=== PATIENT | male | born 1985 | race Caucasian/White ===

== ENCOUNTER 2017-09-15 03:18 | Inpatient (IN) | payer OTHER ==
[2017-09-15] VITALS (11 sets, daily range): BP systolic 108–129; BP diastolic 55–82; PULSE 72–97; RESP 16–17; TEMP 98.2–98.3; O2SAT 94–99
[2017-09-15] MEDS ORDERED: HALOPERIDOL LACTATE 5 MG/ML AMP IM ONE (03:30)
[2017-09-15] MEDS ORDERED: diphenhydrAMINE HCL 50 MG/ML VIAL IM ONE (03:30)
[2017-09-15] MEDS ORDERED: LORazepam 2 MG/ML VIAL IM ONE (03:30)
[2017-09-15] MEDS ORDERED: SODIUM CHLORIDE 0.9% FLUSH 10 ML FLUSH IV FLUSH PRN (03:30)
--- NOTE | 2017-09-15 03:40 | PD ---
HPI . Overdose/ingestion Chief Complaint: OD/ Ingestion Time Seen by Provider: 03:28 Travel History International Travel<30 days: No Contact w/Intl Traveler<30days: No Traveled to known affect area: No History of Present Illness HPI 32-year-old male brought in by police secondary to bizarre behavior and probable overdose/ingestion of illicit substance. Patient is writhing, handcuffed, delusional with flight of ideas. [facility]contributory strain [facility] Past Medical History Narrative Medical Unknown medical history Diminished Hearing: No Social History Alcohol Use: Yes Tobacco Use: Yes Substance Use: Yes (heroin) Allergies-Medications (Allergen,Severity, Reaction): Coded Allergies: No Known Allergies (Unverified , 09/15/17) Narrative Medication Patient denies allergies Review of Systems ROS Limitations: Intoxication, Altered Mental Status, Psychotic, Poor Historian Physical Exam Exam Limitations: Intoxication, Altered Mental Status, Poor Historian, Psychotic Narrative GENERAL: Awake and altered, writhing on stretcher, psychotic behavior. Flight of ideas, delusional thought process SKIN: Warm and dry. HEAD: Atraumatic. Normocephalic. EYES: Pupils equal and round. No scleral icterus. No injection or drainage. ENT: No nasal bleeding or discharge. Mucous membranes pink and moist. NECK: Trachea midline. No JVD. CARDIOVASCULAR: Regular rate and rhythm. RESPIRATORY: No accessory muscle use. Clear to auscultation. Breath sounds equal bilaterally. GASTROINTESTINAL: Abdomen soft, non-tender, nondistended. Hepatic and splenic margins not palpable. MUSCULOSKELETAL: Extremities without clubbing, cyanosis, or edema. No obvious deformities. NEUROLOGICAL: Awake and psychotic, moving all 4 extremities PSYCHIATRIC: Flight of ideas, delusional thought process Data Data Last Documented VS Vital Signs Date Time Temp Pulse Resp B/P (MAP) Pulse Ox O2 Delivery O2 Flow Rate FiO2 09/15/17 05:33 95 Room Air 09/15/17 04:32 92 16 Orders Orders Lorazepam Inj (Ativan Inj) (09/15/17 03:30) Haloperidol Inj (Haldol Inj) (09/15/17 03:30) Diphenhydramine Inj (Benadryl Inj) (09/15/17 03:30) Electrocardiogram (09/15/17 03:29) Ammonia (09/15/17 03:29) Complete Blood Count With Diff (2/9/18 03:29) Comprehensive Metabolic Panel (09/15/17 03:29) Thyroid Stimulating Hormone (09/15/17 03:29) Urinalysis - C+S If Indicated (09/15/17 03:29) Blood Glucose (09/15/17 03:29) Ecg Monitoring (09/15/17 03:29) Iv Access Insert/Monitor (09/15/17 03:29) Oximetry (09/15/17 03:29) Sodium Chloride 0.9% Flush (Ns Flush) (09/15/17 03:30) Drug Screen, Random Urine (09/15/17 03:29) Alcohol (Ethanol) (09/15/17 03:29) Tylenol (Acetaminophen) (09/15/17 03:29) Salicylates (Aspirin) (09/15/17 03:29) Creatine Kinase (Cpk) (09/15/17 03:40) CKMB (09/15/17 03:40) CKMB% (09/15/17 03:40) Sodium Chlor 0.9% 1000 Ml Inj (Ns 1000 M (09/15/17 07:00) Labs Laboratory Tests Test 09/15/17 03:40 White Blood Count 21.6 TH/MM3 Red Blood Count 4.79 MIL/MM3 Hemoglobin 15.4 GM/DL Hematocrit 42.4 % Mean Corpuscular Volume 88.5 FL Mean Corpuscular Hemoglobin 32.1 PG Mean Corpuscular Hemoglobin Concent 36.3 % Red Cell Distribution Width 12.4 % Platelet Count 372 TH/MM3 Mean Platelet Volume 8.1 FL Neutrophils (%) (Auto) 85.5 % Lymphocytes (%) (Auto) 6.6 % Monocytes (%) (Auto) 7.4 % Eosinophils (%) (Auto) 0.2 % Basophils (%) (Auto) 0.3 % Neutrophils # (Auto) 18.5 TH/MM3 Lymphocytes # (Auto) 1.4 TH/MM3 Monocytes # (Auto) 1.6 TH/MM3 Eosinophils # (Auto) 0.1 TH/MM3 Basophils # (Auto) 0.1 TH/MM3 CBC Comment AUTO DIFF Differential Comment AUTO DIFF CONFIRMED Platelet Estimate NORMAL Platelet Morphology Comment NORMAL Blood Urea Nitrogen 16 MG/DL Creatinine 1.78 MG/DL Random Glucose 87 MG/DL Total Protein 8.4 GM/DL Albumin 4.6 GM/DL Calcium Level 9.2 MG/DL Alkaline Phosphatase 51 U/L Aspartate Amino Transf (AST/SGOT) 58 U/L Alanine Aminotransferase (ALT/SGPT) 59 U/L Total Bilirubin 1.3 MG/DL Sodium Level 141 MEQ/L Potassium Level 3.8 MEQ/L Chloride Level 104 MEQ/L Carbon Dioxide Level 20.1 MEQ/L Anion Gap 17 MEQ/L Estimat Glomerular Filtration Rate 44 ML/MIN Ammonia 78 MCMOL/L Total Creatine Kinase 733 U/L Creatine Kinase MB 6.4 NG/ML Creatine Kinase MB % 0.9 % Thyroid Stimulating Hormone 3rd Gen 3.560 uIU/ML Salicylates Level LESS THAN 1.7 MG/DL Acetaminophen Level LESS THAN 2.0 MCG/ML Ethyl Alcohol Level LESS THAN 3 MG/DL MDM Medical Decision Making Medical Screen Exam Complete: Yes Emergency Medical Condition: Yes Medical Record Reviewed: Yes Differential Diagnosis Illicit substance ingestion, toxidrome Narrative Course Patient medicated placed on stretcher under observation. Laboratory examinations reviewed. elevated creatinine 1.78. Markedly elevated CPK 733, elevated ammonia at 73. Possibly metabolic reaction secondary to Illicit Drugs ingestion and prolonged period of hyperactivity secondary to same. Care plan developed, patient to have IV fluids, observation, repeat laboratory values Diagnosis Primary Impression: Intoxication by drug Qualified Codes: F19.921 - Other psychoactive substance use, unspecified with intoxication with delirium Parth Tovar MD Sep 15, 2017 03:40
[2017-09-15 03:58] LABS: AUTOMATED NEUTROPHIL # 18.5 TH/MM3 (1.8-7.7); BASOPHIL # 0.1 TH/MM3 (0-0.2); BASOPHIL % 0.3 % (0.0-2.0); EOSINOPHIL # 0.1 TH/MM3 (0-0.4); EOSINOPHIL % 0.2 % (0.0-4.0); HEMATOCRIT 42.4 % (39.0-51.0); HEMOGLOBIN 15.4 GM/DL (13.0-17.0); LYMPH % 6.6 % (9.0-44.0); LYMPHOCYTE # 1.4 TH/MM3 (1.0-4.8); MEAN CELL VOLUME 88.5 FL (80.0-100.0); MEAN CORPUSCULAR HEMOGLOBIN 32.1 PG (27.0-34.0); MEAN PLATELET VOLUME 8.1 FL (7.0-11.0); MONO % 7.4 % (0.0-8.0); MONOCYTE # 1.6 TH/MM3 (0-0.9); NEUT % 85.5 % (16.0-70.0); PLATELET COUNT 372 TH/MM3 (150-450); RED BLOOD COUNT 4.79 MIL/MM3 (4.50-5.90); RED CELL DISTRIBUTION WIDTH 12.4 % (11.6-17.2); WHITE BLOOD COUNT 21.6 TH/MM3 (4.0-11.0)
[2017-09-15 04:01] LABS: MEAN CORPUSCULAR HGB CONC 36.3 % (32.0-36.0)
[2017-09-15 04:34] LABS: ALKALINE PHOSPHATASE 51 U/L (45-117); TOTAL BILIRUBIN ADULT 1.3 MG/DL (0.2-1.0); TOTAL PROTEIN 8.4 GM/DL (6.4-8.2)
[2017-09-15 04:56] LABS: ACETAMINOPHEN LESS THAN 2.0 MCG/ML (10.0-30.0); ALBUMIN 4.6 GM/DL (3.4-5.0); ALT (GPT) 59 U/L (12-78); AST (GOT) 58 U/L (15-37); BICARBONATE 20.1 MEQ/L (21.0-32.0); BLOOD UREA NITROGEN 16 MG/DL (7-18); CALCIUM 9.2 MG/DL (8.5-10.1); CHLORIDE 104 MEQ/L (98-107); CREATININE 1.78 MG/DL (0.60-1.30); GLOMERULAR FILTRATION RATE 44 ML/MIN (>89); GLUCOSE,RANDOM 87 MG/DL (74-106); SODIUM (NA) 141 MEQ/L (136-145)
[2017-09-15] MEDS ORDERED: SODIUM CHLOR 0.9% 1000 ML INJ 1,000 ML IV ONE (07:00)
[2017-09-15] MEDS ORDERED: LACTULOSE SYRUP 20 GM/30 ML CUP PO PRN (08:00)
[2017-09-15] MEDS ORDERED: LORazepam 2 MG/ML VIAL IV PUSH PRN (08:00)
[2017-09-15] MEDS ORDERED: DEXTROSE 50% IN WATER 50 ML VIAL(D50) IV PUSH PRN (08:00)
[2017-09-15] MEDS ORDERED: RESP: ALBUTEROL 2.5 MG/IPRATROPIUM 0.5 MG NEB (PRN) INH (08:00)
[2017-09-15] MEDS ORDERED: CHLORHEXIDINE GLUCONATE 2 % 1 PACK (2 CLOTHS) TOP PRN (08:00)
[2017-09-15] MEDS ORDERED: BISACODYL 10 MG SUPP RECTAL PRN (08:00)
[2017-09-15] MEDS ORDERED: GLUCAGON 1 MG/ML VIAL OTHER PRN (08:00)
[2017-09-15] MEDS ORDERED: MAGNESIUM HYDROXIDE SUSP 30 ML CUP PO PRN (08:00)
[2017-09-15] MEDS ORDERED: SENNOSIDES 8.6 MG TAB PO PRN (08:00)
[2017-09-15] MEDS: INSULIN NovoLIN REGULAR SUPPLEMENTAL SCALE SQ SCH ×4 (08:00→20:00)
[2017-09-15] MEDS ORDERED: MISCELLANEOUS NURSING INFORMATION XX SCH (08:00)
--- NOTE | 2017-09-15 08:39 | RADRPT ---
EXAM DATE/TIME: 09/15/2017 07:54 [place] COMPARISON: No previous studies available for comparison. INDICATIONS : Shortness of breath. MEDICAL HISTORY : None. SURGICAL HISTORY : None. ENCOUNTER: Initial ACUITY: 1 day PAIN SCORE: Non-responsive. LOCATION: Bilateral chest FINDINGS: The heart is normal. Mild increased perihilar interstitial markings are noted consistent with possibl e mild pulmonary vascular congestion or viral pneumonitis. Clinical correlation is recommended. Degen erative changes and scoliosis of the thoracic spine are noted. CONCLUSION: Mild increased perihilar interstitial markings consistent with possible mild pulmonary vascular conge stion or viral pneumonitis. Clinical correlation is recommended. Nik Villanueva MD on September 15, 2017 at 8:35 Board Certified Radiologist. This report was verified electronically.
[2017-09-15] MEDS ORDERED: LACTULOSE LIQ 300 ML in WATER STERILE FOR IRR BTL 700 ML RECTAL ONE (09:00)
--- NOTE | 2017-09-15 09:30 | MH ---
cc: REGINA ROBLES M.D. DATE OF ADMISSION: 09/15/2017 ADMITTING DIAGNOSIS: Critical care admission. DATE OF : 1985 HISTORY OF PRESENT ILLNESS: The patient is a 32-year-old male with history of tobacco and substance abuse who was brought into [facility] ED by police for altered mental status and psychosis. The patient was a delusional with flight of in the ID is riding in bed and handcuffed. In the ED he was given 2 mg than 5 mg Haldol and 50 mg of Benadryl. LABORATORY FINDINGS: His laboratory data was significant for elevated ammonia level 78, acute kidney injury with creatinine 1.78 and elevated total CK at 733. In addition he had leukocytosis with WBC of 21.6. The patient received 1 liter bolus of normal saline. The history is limited due to patient's mental status and also history was obtained from reviewing medical records. PAST MEDICAL HISTORY Unknown PAST SURGICAL HISTORY Unknown ALLERGIES NO KNOWN DRUG ALLERGIES. FAMILY HISTORY Unknown. MEDICATIONS: Unknown. REVIEW OF SYSTEMS Review of systems limited due to patient's mental status. Physical exam 32-year-old male who appears lethargic and no acute respiratory distress and on room air oxygen. HEAD, EYES, EARS, NOSE, AND THROAT: Atraumatic, normocephalic pupil equal round reactive to accommodation, extraocular muscles intact. Nonicteric sclerae. Oral mucosa within normal. NECK: Supple. No JVD, adenopathy, thyromegaly. Trachea midline. CARDIOVASCULAR SYSTEM: Regular rate and rhythm. Normal S1-S2. No murmurs, rubs or gallops noted. PULMONARY: Bilateral equal air entry. No rales, wheezing. ABDOMEN: Soft, nontender, no distension. Positive bowel sounds. EXTREMITIES: No clubbing, cyanosis or edema. NEUROLOGIC: No focal or sensory deficit. LABORATORY DATA Sodium 141, 1003.8, chloride 104, CO2 20, BUN 16, creatinine 1.78, glucose of 87, AST 58, ALT 59, total bilirubin 1.3, ammonia level 78, total CK 733, TSH 3.56, WBC 21, hemoglobin 15, hematocrit 42, platelet count 372. Alcohol level less than 3, Tylenol less than 2, aspirin level less than 1.7. IMPRESSION 1. Altered mental status. 2. Drug overdose or likely drug overdose and questionable ingestion although Flakkia 3. Acute kidney injury. 4. Leukocytosis 5. Elevated creatine kinases. 6. Elevated AST RECOMMENDATIONS 1. Monitor neuro status closely and place on Ativan 1 mg q. two p.r.n. for agitation. 2. Check urine drug screen. 3. Oxygen p.r.n. to maintain sats above 92%. 4. Bronchodilators in the form of DuoNeb q. six p.r.n. 5. Aspiration precautions. ABG on room air showed a pH of 7.36, CO2 41, pAO2 97, bicarb 22 and sats 96%. Monitor heart rate and blood pressure closely and maintain MAP greater 65 mmHg. Follow up on lactic acid level and continue with IV fluids D5 NS at 125 an hour. 6. Monitor renal function Is and Os and avoid nephrotoxins, IV fluids as stated above, monitor creatine kinases. 7. Keep n.p.o. for now until mental status improves. Place on lactulose 30 an hour t.i.d. and my monitor ammonia level and liver function tests. 8. Place on Pepcid 20 mg IV q. 12-hour for GI prophylaxis. 9. Monitor for signs of infections which include fever and WBC. Will check urinalysis with culture if indicated and will obtain a baseline chest x-ray. Panculture if spikes a fever. 10. Will place on sliding scale insulin with Accu-Chek's to maintain euglycemia. TSH level measured 3.5. 11. Gastrointestinal prophylaxis with Pepcid and deep venous thrombosis prophylaxis with heparin subcuticular sequential compression devices. 12. Further recommendations will be based on hospital course. Thank you MD MAGDALENA Greco/pedro /8:01 AM /9:11 AM
[2017-09-15] MEDS: DEXT 5%-NACL 0.9% 1000 ML INJ 1,000 ML IV SCH ×2 (10:22→17:05)
[2017-09-15] MEDS: HEPARIN SODIUM - SQ 10,000 UNITS/ML VIAL SQ SCH ×2 (10:41→20:25)
[2017-09-15] MEDS: FAMOTIDINE 20 MG/2 ML VIAL IV PUSH SCH ×2 (10:41→20:25)
[2017-09-15] MEDS: DOCUSATE SODIUM 50 MG/SENNA 8.6 MG TAB PO SCH ×2 (11:00→20:25)
[2017-09-15] MEDS: LACTULOSE SYRUP 20 GM/30 ML CUP PO SCH ×3 (11:00→17:51)
[2017-09-15 13:04] LABS: AUTOMATED NEUTROPHIL # 8.9 TH/MM3 (1.8-7.7); BASOPHIL % 0.3 % (0.0-2.0); EOSINOPHIL % 0.2 % (0.0-4.0); LYMPH % 11.3 % (9.0-44.0); LYMPHOCYTE # 1.3 TH/MM3 (1.0-4.8); MEAN CELL VOLUME 89.9 FL (80.0-100.0); MEAN CORPUSCULAR HEMOGLOBIN 31.6 PG (27.0-34.0); MEAN CORPUSCULAR HGB CONC 35.2 % (32.0-36.0); MEAN PLATELET VOLUME 8.4 FL (7.0-11.0); MONO % 8.5 % (0.0-8.0); NEUT % 79.7 % (16.0-70.0); PLATELET COUNT 231 TH/MM3 (150-450); RED BLOOD COUNT 4.12 MIL/MM3 (4.50-5.90); RED CELL DISTRIBUTION WIDTH 12.6 % (11.6-17.2); WHITE BLOOD COUNT 11.1 TH/MM3 (4.0-11.0)
[2017-09-15 13:25] LABS: ALBUMIN 3.7 GM/DL (3.4-5.0); ALT (GPT) 49 U/L (12-78); AST (GOT) 56 U/L (15-37); BICARBONATE 25.6 MEQ/L (21.0-32.0); BLOOD UREA NITROGEN 16 MG/DL (7-18); CALCIUM 7.9 MG/DL (8.5-10.1); CHLORIDE 110 MEQ/L (98-107); GLOMERULAR FILTRATION RATE 97 ML/MIN (>89); GLUCOSE,RANDOM 90 MG/DL (74-106); SODIUM (NA) 144 MEQ/L (136-145)
[2017-09-15 13:32] LABS: ALKALINE PHOSPHATASE 37 U/L (45-117); TOTAL BILIRUBIN ADULT 0.9 MG/DL (0.2-1.0); TOTAL PROTEIN 6.7 GM/DL (6.4-8.2)
[2017-09-15] MEDS ORDERED: MAGNESIUM OXIDE 400 MG TAB PO PRN (14:00)
[2017-09-15] MEDS ORDERED: SODIUM PHOSPHATE INJ 30 MMOL in SODIUM CHLOR 0.9% 250 ML INJ 240 ML IV PRN (14:00)
[2017-09-15] MEDS ORDERED: POTASSIUM PHOSPHATE MONOBASIC 500 MG TAB PO PRN (14:00)
[2017-09-15] MEDS ORDERED: POTASSIUM CHLOR 40 MEQ PREMIX 100 ML IV PRN ×2 (14:00)
[2017-09-15] MEDS ORDERED: POTASSIUM CHLOR 20 MEQ PREMIX 100 ML IV PRN ×2 (14:00)
[2017-09-15] MEDS ORDERED: POTASSIUM PHOSPHATE MONOBASIC 500 MG TAB PO/TUBE PRN (14:00)
[2017-09-15] MEDS ORDERED: MAGNESIUM SULFATE INJ 4 GM in SODIUM CHLORIDE 0.9% INJ 92 ML IV PRN (14:00)
[2017-09-15] MEDS ORDERED: MAGNESIUM SULFATE INJ 2 GM in SODIUM CHLORIDE 0.9% INJ 96 ML IV PRN (14:00)
[2017-09-15] MEDS ORDERED: POTASSIUM PHOSPHATE INJ 30 MMOL in SODIUM CHLOR 0.9% 250 ML INJ 250 ML IV PRN (14:00)
--- NOTE | 2017-09-15 14:34 | EKG ---
Date Performed: 09/15/2017 Time Performed: 04:53:54 PTAGE: 32 years EKG: Sinus rhythm NONSPECIFIC T-WAVE ABNORMALITY BORDERLINE ECG NO PREVIOUS TRACING DOCTOR: Angeles Palencia Interpretating Date/Time 09/15/2017 14:29:34
[2017-09-15 14:57] LABS: PHOSPHORUS 4.1 MG/DL (2.5-4.9)
[2017-09-15] MEDS: POTASSIUM CHLORIDE 25 MEQ EFFERVESCENT TAB PO PRN (15:38)
[2017-09-16] VITALS (13 sets, daily range): BP systolic 93–108; BP diastolic 57–67; PULSE 57–112; RESP 14–42; TEMP 98.1–98.4; O2SAT 96–100
[2017-09-16 00:46] LABS: BILIRUBIN, URINE NEG (NEG); BLOOD, URINE NEG (NEG); GLUCOSE,URINE NEG (NEG); HYALINE CAST, URINE 1 /lpf (RARE); KETONE, URINE 40 mg/dL (NEG); MUCUS URINE FEW /lpf (OCC); NITRITE,URINE NEG (NEG); PH, URINE 6.5 (5.0-8.5); URINE COLOR YELLOW (YELLW/STRAW); URINE LEUKOCYTE ESTERASE NEG (NEG)
[2017-09-16] MEDS: DEXT 5%-NACL 0.9% 1000 ML INJ 1,000 ML IV SCH ×2 (02:28→07:54)
[2017-09-16 03:53] LABS: AUTOMATED NEUTROPHIL # 5.8 TH/MM3 (1.8-7.7); BASOPHIL % 0.5 % (0.0-2.0); EOSINOPHIL # 0.2 TH/MM3 (0-0.4); EOSINOPHIL % 2.6 % (0.0-4.0); HEMATOCRIT 37.3 % (39.0-51.0); HEMOGLOBIN 13.1 GM/DL (13.0-17.0); LYMPH % 22.2 % (9.0-44.0); MEAN CELL VOLUME 91.2 FL (80.0-100.0); MEAN CORPUSCULAR HGB CONC 35.1 % (32.0-36.0); MEAN PLATELET VOLUME 7.9 FL (7.0-11.0); MONO % 9.3 % (0.0-8.0); MONOCYTE # 0.8 TH/MM3 (0-0.9); NEUT % 65.4 % (16.0-70.0); PLATELET COUNT 223 TH/MM3 (150-450); RED BLOOD COUNT 4.09 MIL/MM3 (4.50-5.90); RED CELL DISTRIBUTION WIDTH 12.8 % (11.6-17.2); WHITE BLOOD COUNT 8.9 TH/MM3 (4.0-11.0)
[2017-09-16] MEDS ORDERED: CHLORHEXIDINE GLUCONATE 2 % 1 PACK (2 CLOTHS) TOP SCH (04:00)
[2017-09-16] MEDS: INSULIN NovoLIN REGULAR SUPPLEMENTAL SCALE SQ SCH ×4 (04:00→12:00)
[2017-09-16 04:16] LABS: ALBUMIN 3.2 GM/DL (3.4-5.0); ALT (GPT) 49 U/L (12-78); AST (GOT) 61 U/L (15-37); BICARBONATE 26.1 MEQ/L (21.0-32.0); BLOOD UREA NITROGEN 10 MG/DL (7-18); CALCIUM 7.5 MG/DL (8.5-10.1); CHLORIDE 114 MEQ/L (98-107); CREATININE 0.81 MG/DL (0.60-1.30); GLOMERULAR FILTRATION RATE 110 ML/MIN (>89); GLUCOSE,RANDOM 89 MG/DL (74-106); SODIUM (NA) 146 MEQ/L (136-145)
[2017-09-16 04:18] LABS: ALKALINE PHOSPHATASE 32 U/L (45-117); TOTAL BILIRUBIN ADULT 0.6 MG/DL (0.2-1.0); TOTAL PROTEIN 6.1 GM/DL (6.4-8.2)
[2017-09-16] MEDS: LACTULOSE SYRUP 20 GM/30 ML CUP PO SCH ×2 (07:47→13:00)
[2017-09-16] MEDS: POTASSIUM CHLORIDE 25 MEQ EFFERVESCENT TAB PO PRN (07:48)
[2017-09-16] MEDS: HEPARIN SODIUM - SQ 10,000 UNITS/ML VIAL SQ SCH (07:48)
[2017-09-16] MEDS: FAMOTIDINE 20 MG/2 ML VIAL IV PUSH SCH (07:48)
[2017-09-16] MEDS: DOCUSATE SODIUM 50 MG/SENNA 8.6 MG TAB PO SCH (07:48)
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
--- NOTE | 2017-09-16 14:39 | HHI.CCPN ---
Subjective Remarks/Hospital Course The patient is a 32-year-old male with history of tobacco and substance abuse who was brought into [facility] ED by police for altered mental status and psychosis. The patient was a delusional with flight of in the ID is riding in bed and handcuffed. In the ED he was given 2 mg than 5 mg Haldol and 50 mg of Benadryl. Subjective: 09/16: Afebrile. No acute events overnight. Patient alert and oriented speaking appropriately. Psychiatry evaluation performed. Smith act lifted. Patient tolerating diet. [facility] floor. Objective Vital Signs Date Time Temp Pulse Resp B/P (MAP) Pulse Ox O2 Delivery O2 Flow Rate FiO2 09/16/17 14:00 77 09/16/17 13:00 15 108/67 (81) 97 09/16/17 04:00 98.1 09/15/17 07:42 Room Air Intake and Output 09/16/17 09/16/17 09/16/17 07:59 15:59 23:59 Output Total 500 ml Balance -500 ml Result Diagram: 09/16/17 0324 09/16/17 0324 Imaging Last Impressions Chest X-Ray 09/15/17 0000 Signed Impressions: Service Date/Time: Friday, September 15, 2017 07:54 - CONCLUSION: Mild increased perihilar interstitial markings consistent with possible mild pulmonary vascular congestion or viral pneumonitis. Clinical correlation is recommended. Nik Villanueva MD Objective Remarks GENERAL: Well-developed well-nourished male in no apparent distress SKIN: Warm and dry. HEAD: Atraumatic. Normocephalic. EYES: Pupils equal and round. No scleral icterus. No injection or drainage. ENT: No nasal bleeding or discharge. Mucous membranes pink and moist. NECK: Trachea midline. No JVD. CARDIOVASCULAR: Normal rate, regular rhythm. RESPIRATORY: No accessory muscle use. Clear to auscultation. Breath sounds equal bilaterally. GASTROINTESTINAL: Abdomen soft, non-tender, nondistended. No guarding. MUSCULOSKELETAL: Extremities without clubbing, cyanosis, or edema. No obvious deformities. NEUROLOGICAL: Awake and alert. RASS 0. No gross focal/sensory deficits. Follows commands in all 4 extremities. A/P Assessment and Plan IMPRESSION 1. Altered mental status-resolved 2. Drug overdose or likely drug overdose and questionable ingestion although [place] 3. Acute kidney injury. 4. Leukocytosis 5. Elevated creatine kinases. 6. Elevated AST 7. Substance abuse disorder RECOMMENDATIONS 1. Monitor neuro status closely and place on Ativan 1 mg q. two p.r.n. for agitation. 2. urine drug screen-positive for cocaine, THC, amphetamine 3. Oxygen p.r.n. to maintain sats above 92%. 4. Bronchodilators in the form of DuoNeb q. six p.r.n. 5. Monitor heart rate and blood pressure closely and maintain MAP greater 65 mmHg. Follow up on lactic acid level and continue with IV fluids D5 NS at 125 an hour, discontinued 09/16 6. Monitor renal function Is and Os and avoid nephrotoxins, IV fluids as stated above, monitor creatine kinases. 7. Keep n.p.o. for now until mental status improves. Place on lactulose 30 an hour t.i.d. and my monitor ammonia level and liver function tests. 8. Place on Pepcid 20 mg IV q. 12-hour for GI prophylaxis. 9. Monitor for signs of infections which include fever and WBC. Will check urinalysis with culture if indicated and will obtain a baseline chest x-ray. Panculture if spikes a fever. 10. Will place on sliding scale insulin with Accu-Chek's to maintain euglycemia. TSH level measured 3.5. 11. Gastrointestinal prophylaxis with Pepcid and deep venous thrombosis prophylaxis with heparin subcuticular sequential compression devices. 12. Further recommendations will be based on hospital course. Smith Act lifted per psychiatry Level 2 Dispo: Plan [facility] floor. Plan transfer to [facility] in [facility]. Physician Liliya Mckeon MD Sep 16, 2017 14:39
== END 2017-09-16 15:15 | disposition left against medical advice (07) | DRG 894 ==
LOC: NEPE 03:18 → NEDA 07:20 → HIME 08:07
PROVIDERS: ADMIT Internal Medicine Critical Care Medicine; ATTEND Internal Medicine Critical Care Medicine
DX: F19.129 Other psychoactive substance abuse with intoxication, unspecified (principal); N17.9 Acute kidney failure, unspecified; F19.159 Other psychoactive substance abuse with psychoactive substance-induced psychotic disorder, unspecified; D72.829 Elevated white blood cell count, unspecified; Z72.0 Tobacco use
CPT/HCPCS: 36600; 71045; 80053; 80307; 81001; 82140; 82550; 82552; 82805; 82948; 83605; 84100; 84443; 85025; 87641; 93005; 96372; J1200; J1630; J1644; J2060; J7030; J7042

== ENCOUNTER 2017-09-17 21:31 | Emergency (ER) | payer SELFPAY ==
[~2017-09-17] VITALS: Ht 188 cm; Wt 87.3 kg
[2017-09-17 21:33] VITALS: BP 137/89; PULSE 81; RESP 16; TEMP 98.1; O2SAT 96
[2017-09-18] MEDS ORDERED: DALBAVANCIN INJ 1,500 MG in DEXTROSE 5% IN WATE 500 ML INJ 500 ML IV STA ×2 (02:57)
[2017-09-18] MEDS ORDERED: ASP: No known hypersensitivity to Vanco, Telavancin, Dalbavancin OTHER ONE (03:00)
[2017-09-18] MEDS ORDERED: ASP: Does not meet inpatient admission criteria OTHER ONE (03:00)
[2017-09-18] MEDS ORDERED: ASP: Location of Dalbavancin administration OTHER ONE (03:00)
[2017-09-18] MEDS ORDERED: ASP: Only reason for admit - IV antibiotics OTHER ONE (03:00)
[2017-09-18] MEDS ORDERED: MISCELLANEOUS PHARMACY INFORMATION XX ONE (03:00)
[2017-09-18 03:22] LABS: AUTOMATED NEUTROPHIL # 9.3 TH/MM3 (1.8-7.7); BASOPHIL % 0.2 % (0.0-2.0); EOSINOPHIL # 0.2 TH/MM3 (0-0.4); EOSINOPHIL % 1.9 % (0.0-4.0); HEMATOCRIT 40.8 % (39.0-51.0); HEMOGLOBIN 14.5 GM/DL (13.0-17.0); LYMPH % 14.4 % (9.0-44.0); LYMPHOCYTE # 1.8 TH/MM3 (1.0-4.8); MEAN CELL VOLUME 89.7 FL (80.0-100.0); MEAN CORPUSCULAR HEMOGLOBIN 31.8 PG (27.0-34.0); MEAN CORPUSCULAR HGB CONC 35.4 % (32.0-36.0); MEAN PLATELET VOLUME 8.1 FL (7.0-11.0); MONO % 7.5 % (0.0-8.0); MONOCYTE # 0.9 TH/MM3 (0-0.9); PLATELET COUNT 281 TH/MM3 (150-450); RED BLOOD COUNT 4.55 MIL/MM3 (4.50-5.90); RED CELL DISTRIBUTION WIDTH 12.6 % (11.6-17.2); WHITE BLOOD COUNT 12.3 TH/MM3 (4.0-11.0)
[2017-09-18 03:42] LABS: ALKALINE PHOSPHATASE 40 U/L (45-117); ALT (GPT) 66 U/L (12-78); AST (GOT) 72 U/L (15-37); BICARBONATE 28.3 MEQ/L (21.0-32.0); BLOOD UREA NITROGEN 6 MG/DL (7-18); CALCIUM 8.4 MG/DL (8.5-10.1); CHLORIDE 104 MEQ/L (98-107); CREATININE 0.75 MG/DL (0.60-1.30); GLOMERULAR FILTRATION RATE 120 ML/MIN (>89); GLUCOSE,RANDOM 83 MG/DL (74-106); SODIUM (NA) 140 MEQ/L (136-145); TOTAL BILIRUBIN ADULT 0.9 MG/DL (0.2-1.0); TOTAL PROTEIN 7.5 GM/DL (6.4-8.2)
[2017-09-18] MEDS ORDERED: POTASSIUM CHLORIDE 10 MEQ CONTROLLED RELEASE TAB PO ONE (03:45)
--- NOTE | 2017-09-18 03:59 | PD ---
HPI Chief Complaint: Medical Clearance Time Seen by Provider: 02:35 Travel History International Travel<30 days: No Contact w/Intl Traveler<30days: No Traveled to known affect area: No History of Present Illness HPI Patient is a 32-year-old male presented to emergency department for evaluation of a cough as well as redness to his left inner forearm. Patient states that he attempted to go [facility] for rehabilitation but there were no beds available. Patient admits to injecting ice yesterday. He denies any fever, chills, nausea, vomiting, chest pain, shortness of breath. He does report a cough that has been ongoing for a few weeks. He has no other complaints at this time. He states that the redness started yesterday and has gotten progressively worse, he states is mildly tender. He reports pain is a 4 out of 10. He denies any exacerbating factors. PFSH Past Medical History Asthma: Yes (CHILDHOOD) Diminished Hearing: No Past Surgical History Tonsillectomy: Yes (T&A) Social History Alcohol Use: Yes (OCC) Tobacco Use: Yes (1/2 PPD) Substance Use: Yes (COCAINE, HEROIN, METH IV) Allergies-Medications (Allergen,Severity, Reaction): Coded Allergies: No Known Allergies (Unverified , 09/17/17) Reported Meds & Prescriptions Reported Meds & Active Scripts Active Active Prescriptions or Reported Medications Unobtainable Review of Systems Except as stated in HPI: all other systems reviewed are Neg Respiratory: Positive: Cough Skin: Positive Change in Pigmentation Physical Exam Narrative GENERAL: Well-developed, well-nourished, alert male. Presenting in no acute distress. SKIN: Warm and dry.10 cm x 5 cm area of induration to left antecubital space. No fluctuance noted. Warm to touch. HEAD: Atraumatic. Normocephalic. EYES: Pupils equal and round. No scleral icterus. No injection or drainage. ENT: No nasal bleeding or discharge. Mucous membranes pink and moist. NECK: Trachea midline. No JVD. CARDIOVASCULAR: Regular rate and rhythm. RESPIRATORY: No accessory muscle use. Clear to auscultation. Breath sounds equal bilaterally. GASTROINTESTINAL: Abdomen soft, non-tender, nondistended. Hepatic and splenic margins not palpable. MUSCULOSKELETAL: Extremities without clubbing, cyanosis, or edema. No obvious deformities. NEUROLOGICAL: Awake and alert. No obvious cranial nerve deficits. Motor grossly within normal limits. Five out of 5 muscle strength in the arms and legs. Normal speech. PSYCHIATRIC: Appropriate mood and affect; insight and judgment normal. Data Data Last Documented VS Vital Signs Date Time Temp Pulse Resp B/P (MAP) Pulse Ox O2 Delivery O2 Flow Rate FiO2 09/17/17 21:33 98.1 81 16 137/89 (105) 96 Room Air Orders Orders Complete Blood Count With Diff (09/18/17 02:57) Comprehensive Metabolic Panel (09/18/17 02:57) Blood Culture (09/18/17 02:57) Case Management Consult (09/18/17 ) Asp:No Reaction To [place]/Vanc (Asp Crit (09/18/17 03:00) Asp: Does Not Meet Inpt Admit (Asp Crit: (09/18/17 03:00) Asp: Iv Antibiotics Admit Only (Asp Crit (09/18/17 03:00) Asp: Location Of [place] Admin (Asp Crit: (09/18/17 03:00) [facility] [place] [facility] Information ([facility] (09/18/17 03:00) [place] Inj ([facility] Inj) (09/18/17 02:57) Elevate (09/18/17 02:57) Measurements (09/18/17 02:57) Iv Access Insert/Monitor (09/18/17 02:57) Chest, Single Ap (09/18/17 ) Potassium Chloride (Kcl) (09/18/17 03:45) Ed Discharge Order (09/18/17 05:59) Labs Laboratory Tests Test 09/18/17 03:10 White Blood Count 12.3 TH/MM3 Red Blood Count 4.55 MIL/MM3 Hemoglobin 14.5 GM/DL Hematocrit 40.8 % Mean Corpuscular Volume 89.7 FL Mean Corpuscular Hemoglobin 31.8 PG Mean Corpuscular Hemoglobin Concent 35.4 % Red Cell Distribution Width 12.6 % Platelet Count 281 TH/MM3 Mean Platelet Volume 8.1 FL Neutrophils (%) (Auto) 76.0 % Lymphocytes (%) (Auto) 14.4 % Monocytes (%) (Auto) 7.5 % Eosinophils (%) (Auto) 1.9 % Basophils (%) (Auto) 0.2 % Neutrophils # (Auto) 9.3 TH/MM3 Lymphocytes # (Auto) 1.8 TH/MM3 Monocytes # (Auto) 0.9 TH/MM3 Eosinophils # (Auto) 0.2 TH/MM3 Basophils # (Auto) 0.0 TH/MM3 CBC Comment DIFF FINAL Differential Comment Blood Urea Nitrogen 6 MG/DL Creatinine 0.75 MG/DL Random Glucose 83 MG/DL Total Protein 7.5 GM/DL Albumin 4.0 GM/DL Calcium Level 8.4 MG/DL Alkaline Phosphatase 40 U/L Aspartate Amino Transf (AST/SGOT) 72 U/L Alanine Aminotransferase (ALT/SGPT) 66 U/L Total Bilirubin 0.9 MG/DL Sodium Level 140 MEQ/L Potassium Level 3.0 MEQ/L Chloride Level 104 MEQ/L Carbon Dioxide Level 28.3 MEQ/L Anion Gap 8 MEQ/L Estimat Glomerular Filtration Rate 120 ML/MIN MDM Medical Decision Making Medical Screen Exam Complete: Yes Emergency Medical Condition: Yes Interpretation(s) Vital Signs Date Time Temp Pulse Resp B/P (MAP) Pulse Ox O2 Delivery O2 Flow Rate FiO2 09/17/17 21:33 98.1 81 16 137/89 (105) 96 Room Air Differential Diagnosis Cellulitis versus abscess versus sepsis versus other Narrative Course Patient presented for evaluation of redness to his left AC for the last 24 hours. It appears that the induration has started abruptly and quickly. Patient's vital signs are stable. Labs and blood cultures ordered and pending. [facility] order set initiated. It is encouraged to avoid any further IV drug use. He was encouraged to follow up with [facility] tomorrow morning. He was encouraged to return to emergency department immediately for any new or worsening symptoms. Verbalized understanding of these instructions. Patient is stable for discharge. Patient tolerated infusion. Chest x-ray was negative for acute abnormality. Patient is stable for discharge. Diagnosis Primary Impression: Cellulitis Qualified Codes: L03.114 - Cellulitis of left upper limb Additional Impression: Polysubstance abuse Referrals: [facility] 3 days [facility] day Patient Instructions: Cellulitis (ED), General Instructions Additional Instructions: Follow Up at [facility] Establish care with a primary doctor or at [facility] Avoid further IV drug use Return to emergency department for any new or worsening symptoms Med/Other Pt SpecificInfo: No Change to Meds Scripts Unable to Obtain Active Prescriptions or Reported Meds Disposition: 01 DISCHARGE HOME Condition: Stable Dafne Miranda Sep 18, 2017 03:59
--- NOTE | 2017-09-18 04:04 | RADRPT ---
EXAM DATE/TIME: 09/18/2017 03:47 [place] COMPARISON: CHEST SINGLE AP, September 15, 2017, 7:54. INDICATIONS : Cough and congestion MEDICAL HISTORY : None. SURGICAL HISTORY : None. ENCOUNTER: Initial ACUITY: 1 day PAIN SCORE: 8/10 LOCATION: Bilateral chest FINDINGS: A single view of the chest demonstrates the lungs to be symmetrically aerated without evidence of mas s, infiltrate or effusion. The cardiomediastinal contours are unremarkable. Osseous structures are intact. CONCLUSION: 1. Kevin Deleon MD on September 18, 2017 at 4:02 Board Certified Radiologist. This report was verified electronically.
== END 2017-09-18 06:38 | disposition home or self-care (01) ==
LOC: NEPD 21:31 → NETRI 21:31 → NED 23:00 → NEPD 09-18 06:38
DX: L03.114 Cellulitis of left upper limb (principal); J45.909 Unspecified asthma, uncomplicated; R05 Cough; F14.10 Cocaine abuse, uncomplicated; F11.10 Opioid abuse, uncomplicated; F15.10 Other stimulant abuse, uncomplicated; F17.200 Nicotine dependence, unspecified, uncomplicated
CPT/HCPCS: 71045; 80053; 85025; 87040; 96365; 99284; J0875; J7060

== ENCOUNTER 2018-01-17 14:01 | Emergency (ER) | payer SELFPAY ==
[2018-01-17 14:05] VITALS: BP 141/78; PULSE 120; RESP 20; TEMP 98.9; O2SAT 98
[2018-01-17] MEDS ORDERED: SODIUM CHLOR 0.9% 1000 ML INJ 1,000 ML IV ONE ×2 (14:17→16:30)
--- NOTE | 2018-01-17 14:24 | PD ---
HPI Chief Complaint: Drug ingestion Time Seen by Provider: 14:17 Travel History International Travel<30 days: No Contact w/Intl Traveler<30days: No Traveled to known affect area: No History of Present Illness HPI The patient is a 32-year-old male who presents to the emergency department via EMS for drug ingestion. The patient states he was at work earlier today when he got stung on the distal aspect of the third digit, left hand, extensor surface and started to experience shaking. However, EMS stated the patient appear to be under the influence of drugs. Upon arrival the patient was somewhat agitated, he thinks he might of been stung by an insect or stuck by a watson while working. However, he states he has been using "ice" for the last several days, does have a history of drug ingestion. The patient states he feels tremulous, agitated, nervous. He denies any headache, chest pain, shortness breath, nausea, vomiting, or abdominal pain. Symptoms are moderate, exacerbated after using illicit drugs. PFSH Past Medical History Asthma: Yes (CHILDHOOD) Diminished Hearing: No Past Surgical History Tonsillectomy: Yes (T&A) Social History Alcohol Use: Yes (OCC) Tobacco Use: Yes (/2 PPD) Substance Use: Yes (COCAINE, HEROIN, METH IV) Allergies-Medications (Allergen,Severity, Reaction): Coded Allergies: No Known Allergies (Unverified , 09/17/17) Reported Meds & Prescriptions Reported Meds & Active Scripts Active Active Prescriptions or Reported Medications Unobtainable Review of Systems Except as stated in HPI: all other systems reviewed are Neg General / Constitutional: No: Fever HENT: No: Headaches, Lightheadedness Cardiovascular: No: Chest Pain or Discomfort Respiratory: No: Shortness of Breath Gastrointestinal: No: Nausea, Vomiting, Abdominal Pain Skin: Positive Other (As noted in the history of present illness) Psychiatric: Positive: Substance Abuse, No: Suicidal Ideations, Homicidal Ideation Physical Exam Narrative GENERAL: Awake, alert, somewhat agitated 32-year-old male appears his stated age , appears slightly paranoid. SKIN: Focused skin assessment warm/dry. No obvious puncture wound on the extensor surface of the third digit distal aspect where he states he might of been stung. HEAD: Atraumatic. Normocephalic. EYES: Pupils equal and round. 4 mm bilateral and reactive. ENT: No nasal bleeding or discharge. Mucous membranes pink and moist. NECK: Trachea midline. No JVD. CARDIOVASCULAR: Regular, tachycardic with a heart rate of 110. RESPIRATORY: No accessory muscle use. Clear to auscultation. Breath sounds equal bilaterally. GASTROINTESTINAL: Abdomen soft, non-tender, nondistended. MUSCULOSKELETAL: No obvious deformities. No clubbing. No cyanosis. No edema. Slightly tremulous. NEUROLOGICAL: Awake and alert. No obvious cranial nerve deficits. Motor grossly within normal limits. Normal speech. Nonfocal. PSYCHIATRIC: Agitated. Anxious. Data Data Last Documented VS Vital Signs Date Time Temp Pulse Resp B/P (MAP) Pulse Ox O2 Delivery O2 Flow Rate FiO2 01/17/18 14:35 98 Room Air 01/17/18 14:35 120 20 01/17/18 14:05 98.9 141/78 (99) Orders Orders Electrocardiogram (01/17/18 14:17) Complete Blood Count With Diff (01/17/18 14:17) Comprehensive Metabolic Panel (01/17/18 14:17) Urinalysis - C+S If Indicated (01/17/18 14:17) Iv Access Insert/Monitor (01/17/18 14:17) Ecg Monitoring (01/17/18 14:17) Oximetry (01/17/18 14:17) Lorazepam Inj (Ativan Inj) (01/17/18 14:30) Sodium Chloride 0.9% Flush (Ns Flush) (01/17/18 14:30) Sodium Chlor 0.9% 1000 Ml Inj (Ns 1000 M (01/17/18 14:17) Drug Screen, Random Urine (01/17/18 14:17) Alcohol (Ethanol) (01/17/18 14:17) Creatine Kinase (Cpk) (01/17/18 14:17) Potassium Chloride (Kcl) (01/17/18 16:00) Potassium Chlor 20 Meq Premix (Kcl 20 Me (01/17/18 16:00) CKMB (01/17/18 14:49) CKMB% (01/17/18 14:49) Sodium Chlor 0.9% 1000 Ml Inj (Ns 1000 M (01/17/18 16:30) Labs Laboratory Tests Test 01/17/18 14:49 White Blood Count 8.5 TH/MM3 Red Blood Count 4.60 MIL/MM3 Hemoglobin 14.6 GM/DL Hematocrit 41.5 % Mean Corpuscular Volume 90.1 FL Mean Corpuscular Hemoglobin 31.7 PG Mean Corpuscular Hemoglobin Concent 35.2 % Red Cell Distribution Width 12.8 % Platelet Count 257 TH/MM3 Mean Platelet Volume 8.2 FL Neutrophils (%) (Auto) 60.4 % Lymphocytes (%) (Auto) 30.3 % Monocytes (%) (Auto) 7.6 % Eosinophils (%) (Auto) 1.3 % Basophils (%) (Auto) 0.4 % Neutrophils # (Auto) 5.1 TH/MM3 Lymphocytes # (Auto) 2.6 TH/MM3 Monocytes # (Auto) 0.6 TH/MM3 Eosinophils # (Auto) 0.1 TH/MM3 Basophils # (Auto) 0.0 TH/MM3 CBC Comment DIFF FINAL Differential Comment Blood Urea Nitrogen 10 MG/DL Creatinine 0.99 MG/DL Random Glucose 106 MG/DL Total Protein 7.7 GM/DL Albumin 4.4 GM/DL Calcium Level 8.7 MG/DL Alkaline Phosphatase 40 U/L Aspartate Amino Transf (AST/SGOT) 47 U/L Alanine Aminotransferase (ALT/SGPT) 62 U/L Total Bilirubin 0.8 MG/DL Sodium Level 140 MEQ/L Potassium Level 2.8 MEQ/L Chloride Level 106 MEQ/L Carbon Dioxide Level 22.2 MEQ/L Anion Gap 12 MEQ/L Estimat Glomerular Filtration Rate 87 ML/MIN Total Creatine Kinase 422 U/L Creatine Kinase MB 3.1 NG/ML Creatine Kinase MB % 0.7 % Ethyl Alcohol Level LESS THAN 3 MG/DL MDM Medical Decision Making Medical Screen Exam Complete: Yes Emergency Medical Condition: Yes Medical Record Reviewed: Yes Interpretation(s) EKG reveals normal sinus rhythm with a rate of 70. Intraventricular conduction delay with QRS of 113 ms. Laboratory Tests Test 01/17/18 14:49 White Blood Count 8.5 TH/MM3 Red Blood Count 4.60 MIL/MM3 Hemoglobin 14.6 GM/DL Hematocrit 41.5 % Mean Corpuscular Volume 90.1 FL Mean Corpuscular Hemoglobin 31.7 PG Mean Corpuscular Hemoglobin Concent 35.2 % Red Cell Distribution Width 12.8 % Platelet Count 257 TH/MM3 Mean Platelet Volume 8.2 FL Neutrophils (%) (Auto) 60.4 % Lymphocytes (%) (Auto) 30.3 % Monocytes (%) (Auto) 7.6 % Eosinophils (%) (Auto) 1.3 % Basophils (%) (Auto) 0.4 % Neutrophils # (Auto) 5.1 TH/MM3 Lymphocytes # (Auto) 2.6 TH/MM3 Monocytes # (Auto) 0.6 TH/MM3 Eosinophils # (Auto) 0.1 TH/MM3 Basophils # (Auto) 0.0 TH/MM3 CBC Comment DIFF FINAL Differential Comment Blood Urea Nitrogen 10 MG/DL Creatinine 0.99 MG/DL Random Glucose 106 MG/DL Total Protein 7.7 GM/DL Albumin 4.4 GM/DL Calcium Level 8.7 MG/DL Alkaline Phosphatase 40 U/L Aspartate Amino Transf (AST/SGOT) 47 U/L Alanine Aminotransferase (ALT/SGPT) 62 U/L Total Bilirubin 0.8 MG/DL Sodium Level 140 MEQ/L Potassium Level 2.8 MEQ/L Chloride Level 106 MEQ/L Carbon Dioxide Level 22.2 MEQ/L Anion Gap 12 MEQ/L Estimat Glomerular Filtration Rate 87 ML/MIN Total Creatine Kinase 422 U/L Creatine Kinase MB 3.1 NG/ML Creatine Kinase MB % 0.7 % Ethyl Alcohol Level LESS THAN 3 MG/DL Differential Diagnosis Differential diagnosis includes methamphetamine use, cocaine use, sympathomimetic crisis, NMS, dehydration, rhabdomyolysis, polysubstance abuse, alcohol withdrawal, psychosis, encephalopathy. Narrative Course IV was established, labs are drawn and sent, the patient was placed on cardiac telemetry monitoring and continuous pulse oximetry monitoring. EKG was ordered and interpreted. The patient was administered Ativan 2 mg intravenously and 1 L of normal saline. Patient's potassium was low, this was replaced intravenously. The patient's CK was mildly elevated, was administered a second liter of IV fluids. The patient was allowed to sleep off the drug ingestion. Once he is able to ambulate and is alert and oriented x4, the patient can be discharged. He is advised to stop using illicit drugs including methamphetamines. Diagnosis Primary Impression: Polysubstance abuse Patient Instructions: General Instructions Additional Instructions: Decrease drug use. Follow-up with your primary physician. Return if symptoms worsen or progress. Med/Other Pt SpecificInfo: No Change to Meds Scripts Unable to Obtain Active Prescriptions or Reported Meds Disposition: DISCHARGE HOME Condition: Stable Tim Hammond MD Jan 17, 2018 14:24
[2018-01-17] MEDS ORDERED: LORazepam 2 MG/ML VIAL IV PUSH ONE (14:30)
[2018-01-17] MEDS ORDERED: SODIUM CHLORIDE 0.9% FLUSH 10 ML FLUSH IVF PRN (14:30)
[2018-01-17 14:35] VITALS: O2SAT 98
[2018-01-17 14:59] LABS: AUTOMATED NEUTROPHIL # 5.1 TH/MM3 (1.8-7.7); BASOPHIL % 0.4 % (0.0-2.0); EOSINOPHIL # 0.1 TH/MM3 (0-0.4); EOSINOPHIL % 1.3 % (0.0-4.0); HEMATOCRIT 41.5 % (39.0-51.0); HEMOGLOBIN 14.6 GM/DL (13.0-17.0); LYMPH % 30.3 % (9.0-44.0); LYMPHOCYTE # 2.6 TH/MM3 (1.0-4.8); MEAN CELL VOLUME 90.1 FL (80.0-100.0); MEAN CORPUSCULAR HEMOGLOBIN 31.7 PG (27.0-34.0); MEAN CORPUSCULAR HGB CONC 35.2 % (32.0-36.0); MEAN PLATELET VOLUME 8.2 FL (7.0-11.0); MONO % 7.6 % (0.0-8.0); MONOCYTE # 0.6 TH/MM3 (0-0.9); NEUT % 60.4 % (16.0-70.0); PLATELET COUNT 257 TH/MM3 (150-450); RED CELL DISTRIBUTION WIDTH 12.8 % (11.6-17.2); WHITE BLOOD COUNT 8.5 TH/MM3 (4.0-11.0)
[2018-01-17 15:46] LABS: ALBUMIN 4.4 GM/DL (3.4-5.0); ALKALINE PHOSPHATASE 40 U/L (45-117); ALT (GPT) 62 U/L (12-78); AST (GOT) 47 U/L (15-37); BICARBONATE 22.2 MEQ/L (21.0-32.0); BLOOD UREA NITROGEN 10 MG/DL (7-18); CALCIUM 8.7 MG/DL (8.5-10.1); CHLORIDE 106 MEQ/L (98-107); CREATININE 0.99 MG/DL (0.60-1.30); GLOMERULAR FILTRATION RATE 87 ML/MIN (>89); GLUCOSE,RANDOM 106 MG/DL (74-106); SODIUM (NA) 140 MEQ/L (136-145); TOTAL BILIRUBIN ADULT 0.8 MG/DL (0.2-1.0); TOTAL PROTEIN 7.7 GM/DL (6.4-8.2)
[2018-01-17] MEDS ORDERED: POTASSIUM CHLORIDE 20 MEQ CONTROLLED RELEASE TAB PO ONE (16:00)
[2018-01-17] MEDS ORDERED: POTASSIUM CHLOR 20 MEQ PREMIX 100 ML IV ONE (16:00)
[2018-01-17 16:30] VITALS: BP 110/66; PULSE 64; RESP 16; O2SAT 96
[2018-01-17 19:05] VITALS: BP 118/70; PULSE 66; RESP 16; O2SAT 96
[2018-01-18] VITALS: BP 106/66; PULSE 62; RESP 16; O2SAT 98
--- NOTE | 2018-01-18 18:25 | EKG ---
Date Performed: 01/17/2018 Time Performed: 15:09:16 PTAGE: 32 years EKG: Sinus rhythm MODERATE INTRAVENTRICULAR CONDUCTION DELAY BORDERLINE ECG when compared to prior EKG, the patient no w has a interventricular conduction delay. PREVIOUS TRACING : 09/15/2017 04.53 DOCTOR: Shayla Ocampo Interpretating Date/Time 01/18/2018 18:24:00
== END 2018-01-18 01:59 | disposition home or self-care (01) ==
LOC: NEPC 14:01
DX: F19.10 Other psychoactive substance abuse, uncomplicated (principal); R45.1 Restlessness and agitation; E87.6 Hypokalemia; R00.0 Tachycardia, unspecified; R94.31 Abnormal electrocardiogram [ECG] [EKG]; F17.200 Nicotine dependence, unspecified, uncomplicated
CPT/HCPCS: 80053; 80307; 82550; 82552; 85025; 93005; 96361; 96365; 96366; 96375; 99284; J2060; J3480; J7030